=== PATIENT | male | born 1990 | race Caucasian/White ===

== ENCOUNTER 2020-05-20 02:12 | Observation (INO) ==
[2020-05-20] MEDS ORDERED: HYDROmorphone 2 MG/1 ML VIAL IV ONE (02:43)
[2020-05-20] MEDS ORDERED: ONDANSETRON 4 MG/2 ML VIAL IV STA (02:43)
[2020-05-20] MEDS ORDERED: ONDANSETRON 4 MG/2 ML VIAL ONE ×2 (02:44→12:22)
[2020-05-20] MEDS ORDERED: HYDROmorphone 2 MG/1 ML VIAL ONE (02:44)
[2020-05-20 03:31] LABS: Albumin 3.9 G/DL (3.4-5.0); Bilirubin,Total 0.4 MG/DL (0.2-1.0); Calcium 8.8 MG/DL (8.5-10.1); Osmolality,Calculated 280.4 MOS/KG (273-304); Total Protein 7.5 G/DL (6.4-8.3)
[2020-05-20 03:32] LABS: Basophils # 0.1 10*3/uL (0.0-0.2); Basophils % 0.4 % (0.0-0.8); Eosinophils # 0.3 10*3/uL (0.0-0.87); Eosinophils % 2.2 % (0.00-10.9); Hematocrit 45.4 VOL% (42.0-52.0); Hemoglobin 15.6 GM/DL (14.0-18.0); Immature Granulocytes % 0.3 %; Immature Granulocytes Absolute 0.04 #; Lymphocytes # 2.8 10*3/uL (1.4-4.0); Lymphocytes % 21.5 % (21.2-54.2); Mean Corpuscular HGB Conc 34.4 GM/DL (32-36); Mean Platelet Volume 10.5 FL (9.6-12.0); Monocytes % 7.8 % (1.7-12.7); Neutrophils % 67.8 % (38.7-73.9); Platelet Count 221 T/CUMM (130-400); Red Blood Count 4.88 MC/CUMM (3.8-5.5); Red Cell Distribution Width 12.2 % (9.3-17.3); White Blood Count 13.1 T/CUMM (4-12)
[2020-05-20 03:47] LABS: PT Patient Result 11.1 SECS (9.8-11.9)
[2020-05-20 03:51] LABS: Bilirubin,Urine Negative (Negative); Blood, Urine Large mg/dL (Negative); Glucose,Urine (UA) Negative (Negative); Ketones,Urine Negative (Negative); Mucus,Urine Occasional /LPF (Occasional); Nitrite,Urine Negative (Negative); Protein,Urine Negative; RBC,Urine 189 /HPF (0-4); Urine Appearance CLEAR (Clear); Urine Color Yellow (Yellow); Urine Specific Gravity 1.017 (1.001-1.035); Urine Urobilinogen < 2.0 EU/DL (0.2-1.0); WBC,Urine 4 /HPF (0-6)
[2020-05-20] MEDS ORDERED: PHENAZOPYRIDINE 95 MG TABLET PO PRN (04:00)
[2020-05-20] MEDS ORDERED: ONDANSETRON 4 MG/2 ML VIAL IV PRN (04:00)
[2020-05-20] MEDS ORDERED: ACETAMINOPHEN 325 MG TABLET PO PRN (04:00)
[2020-05-20] MEDS ORDERED: PROMETHAZINE 25 MG/1 ML VIAL IM PRN (04:00)
[2020-05-20] MEDS: SODIUM CHLORIDE 0.9% 1,000 ML IV SCH ×4 (05:05→22:13)
[2020-05-20] MEDS: HYDROmorphone 2 MG/1 ML VIAL IV PRN ×2 (05:10→14:22)
[2020-05-20 05:39] LABS: Calcium 8.7 MG/DL (8.5-10.1)
[2020-05-20] MEDS ORDERED: cefTRIAXone 1,000 MG in SODIUM CHLORIDE 0.9% 100 ML IV ONE (06:27)
[2020-05-20] MEDS ORDERED: propofoL 200 MG/20 ML VIAL IV ONE (12:21)
[2020-05-20] MEDS ORDERED: LIDOCAINE 2% 5 ML VIAL ONE (12:21)
[2020-05-20] MEDS ORDERED: SEVOFLURANE 1 UNIT/15 MINUTE INH ONE (12:21)
[2020-05-20] MEDS ORDERED: LACTATED RINGERS 1,000 ML IV ONE (12:22)
[2020-05-20] MEDS: TAMSULOSIN 0.4 MG CAPSULE PO SCH ×2 (14:14→20:42)
[2020-05-21] MEDS: SODIUM CHLORIDE 0.9% 1,000 ML IV SCH ×2 (02:12→04:52)
[2020-05-21] MEDS: HYDROmorphone 2 MG/1 ML VIAL IV PRN (05:03)
[2020-05-21 05:11] LABS: Basophils % 0.2 % (0.0-0.8); Eosinophils # 0.4 10*3/uL (0.0-0.87); Eosinophils % 4.4 % (0.00-10.9); Hematocrit 42.5 VOL% (42.0-52.0); Hemoglobin 14.5 GM/DL (14.0-18.0); Immature Granulocytes % 0.3 %; Immature Granulocytes Absolute 0.03 #; Lymphocytes # 2.6 10*3/uL (1.4-4.0); Lymphocytes % 27.6 % (21.2-54.2); Mean Corpuscular HGB Conc 34.1 GM/DL (32-36); Mean Corpuscular Volume 94.4 FL (87-102); Mean Platelet Volume 10.3 FL (9.6-12.0); Neutrophils % 59.5 % (38.7-73.9); Platelet Count 181 T/CUMM (130-400); Red Cell Distribution Width 12.3 % (9.3-17.3); White Blood Count 9.3 T/CUMM (4-12)
[2020-05-21 05:30] LABS: Calcium 8.6 MG/DL (8.5-10.1); Osmolality,Calculated 275.5 MOS/KG (273-304)
[2020-05-21 08:26] VITALS: BP 134/69
[2020-05-21] MEDS: TAMSULOSIN 0.4 MG CAPSULE PO SCH (09:23)
== END 2020-05-21 11:23 | disposition home or self-care (01) ==
LOC: EDUNIT# → EDBD → N.EDINP 02:12 → N.ED 02:12 → N.TELEN 04:36
PROVIDERS: ADMIT Surgery; ATTEND Surgery